=== PATIENT | male | born 1975 | race Caucasian/White ===

== ENCOUNTER → 2018-04-27 | Outpatient (CLI) | payer BC ==
--- NOTE | 2018-05-04 09:24 | RADIOLOGY IMAGING REPORT ---
FACILITY: [facility] PATIENT NAME: Miguel Montana : 1975 MR: [id number] V: [id number] EXAM DATE: ORDERING PHYSICIAN: RASHARD JEFFERSON TECHNOLOGIST: Location: [facility] Patient: Miguel Montana : 1975 Visit/Account:[id number] Date of Sevice: 04/27/2018 EXAMINATION: Ultrasound abdomen right upper quadrant HISTORY: Abnormal liver function tests. COMPARISON: None. FINDINGS: Gallbladder: No stones, wall thickening, pericholecystic fluid or sonographic Pruitt sign. The gallbl adder wall thickness is normal at 2 mm. Liver: There is diffuse increased hepatic echogenicity with heterogeneous echotexture, compatible wit h fatty infiltration. This may limit assessment for focal liver lesion. Normal hepatopetal flow is p resent. The liver length is 16.1 cm. Common bile duct: No significant intrahepatic or extrahepatic biliary ductal dilatation is present. T he common bile duct is normal at 4 mm. Pancreas: Normal where visualized. The tail of the pancreas is obscured by bowel gas. Right kidney: Normal in size and echogenicity, measuring 11.5 cm in length. No hydronephrosis. Upper abdominal aorta and IVC: Patent. Ascites: None. IMPRESSION: 1. Mild fatty infiltration of the liver and borderline hepatomegaly. 2. No ascites. Report Dictated By: Sophy Schulz MD at 04/27/2018 8:51 AM Report E-Signed By: Sophy Schulz MD at 04/27/2018 8:55 AM WSN:[email or web address]
== END ==
LOC: US 01:53
PROVIDERS: ATTEND Physician Assistant
DX: R94.5 Abnormal results of liver function studies (principal)
CPT/HCPCS: 76705

== ENCOUNTER → 2018-06-10 | Outpatient (REF) | payer BC | LOC: ZZSENDIN 10:56 | PROVIDERS: ATTEND Physician Assistant | DX: E11.8 Type 2 diabetes mellitus with unspecified complications (principal) ==